=== PATIENT | female | born 1990 | race Asian ===

== ENCOUNTER 2017-01-10 17:52 | Inpatient (IN) | payer BC ==
[~2017-01-10] VITALS: Ht 162.6 cm; Wt 51.8 kg
[2017-01-10 18:43] LABS: PLATELET COUNT 210 x10^3mcL (130-400); RED CELL DISTRIBUTION WIDTH 12.9 % (11.5-14.5)
[2017-01-10 18:49] LABS: BASOPHIL % 0 % (0-2)
[2017-01-10 18:53] LABS: CALCIUM 9.5 mg/dL (8.5-10.1); CARBON DIOXIDE 15.9 mmol/L (21-32); CHLORIDE SERUM 101 mmol/L (98-107); CREATININE SERUM 0.8 mg/dL (0.6-1.0); GFR1 > 60 mL/min; GLUCOSE SERUM 84 mg/dL (74-106); POTASSIUM SERUM 3.3 mmol/L (3.5-5.1); SODIUM SERUM 138 mmol/L (136-145)
[2017-01-10 18:59] LABS: ALBUMIN 4.3 g/dL (3.4-5.0); ALKALINE PHOSPHATASE 31 U/L (46-116); ALT/SGPT 42 U/L (14-59); AMYLASE 68 U/L (25-115); AST/SGOT 25 U/L (15-37); LIPASE 108 IU/L (73-393)
[2017-01-10 19:00] LABS: TOTAL PROTEIN, SERUM 9.4 g/dL (6.4-8.2)
[2017-01-10 21:33] LABS: FREE T4 1.39 ng/dL (0.76-1.46)
[2017-01-10 21:34] LABS: T3 TOTAL 0.85 ng/mL
[2017-01-10 21:35] LABS: T4(THYROXINE) 16.2 ug/dL (4.7-13.3)
[2017-01-10 21:49] VITALS: BP 107/77
[2017-01-10 21:50] LABS: PHOSPHOROUS 4.5 mg/dL (2.5-4.9)
[2017-01-10 21:51] LABS: CHOLESTEROL/HDL RATIO 2.1
[2017-01-11 05:44] VITALS: BP 116/59
[2017-01-11 05:46] LABS: UA SPECIFIC GRAVITY >=1.030 (1.005-1.035); microscopic required? YES; urine erythrocyte NEGATIVE (NEGATIVE)
[2017-01-11 06:13] LABS: BASOPHIL % 0.2 % (0-2); PLATELET COUNT 162 x10^3mcL (130-400); RED CELL DISTRIBUTION WIDTH 13.1 % (11.5-14.5)
[2017-01-11 06:30] LABS: CALCIUM 8.3 mg/dL (8.5-10.1); CARBON DIOXIDE 14.9 mmol/L (21-32); CHLORIDE SERUM 109 mmol/L (98-107); CREATININE SERUM 0.6 mg/dL (0.6-1.0); GFR1 > 60 mL/min; GLUCOSE SERUM 82 mg/dL (74-106); POTASSIUM SERUM 3.2 mmol/L (3.5-5.1); SODIUM SERUM 140 mmol/L (136-145)
[2017-01-11 09:05] VITALS: BP 98/68
[2017-01-11 12:43] VITALS: BP 94/64
[2017-01-11 16:34] VITALS: BP 93/65
[2017-01-11] MEDS ORDERED: PEP20 PO (20:41)
[2017-01-11] MEDS ORDERED: MAC100 PO (20:45)
[2017-01-11] MEDS ORDERED: LAC PO (20:46)
[2017-01-11 21:10] VITALS: BP 96/54
[2017-01-12 04:57] VITALS: BP 102/73
[2017-01-12 05:56] LABS: BASOPHIL % 0.2 % (0-2); PLATELET COUNT 149 x10^3mcL (130-400); RED CELL DISTRIBUTION WIDTH 13.3 % (11.5-14.5)
[2017-01-12 06:17] LABS: CALCIUM 8.3 mg/dL (8.5-10.1); CHLORIDE SERUM 110 mmol/L (98-107); CREATININE SERUM 0.5 mg/dL (0.6-1.0); GFR1 > 60 mL/min; GLUCOSE SERUM 73 mg/dL (74-106); POTASSIUM SERUM 3.6 mmol/L (3.5-5.1); SODIUM SERUM 140 mmol/L (136-145)
[2017-01-12] MEDS ORDERED: ZOF4 PO (07:40)
[2017-01-12 09:32] VITALS: BP 121/57
[2017-01-12 09:35] VITALS: BP 102/66
[2017-01-12] MEDS ORDERED: DICLEGIS1 TCP PO ×2 (11:53→14:59)
[2017-01-12 12:58] VITALS: BP 102/66
[2017-01-12] MEDS ORDERED: COL100 PO (14:03)
[2017-01-12] MEDS ORDERED: MAC100 PO (14:59)
[2017-01-12] MEDS ORDERED: PEP20 PO (14:59)
[2017-01-12] MEDS ORDERED: LAC PO (14:59)
== END 2017-01-12 15:33 | disposition home or self-care (01) | DRG 781 ==
LOC: EDBD 17:52 → ED 17:52 → DU 20:40 → MU 01-12 10:06
PROVIDERS: Emergency Medicine; ADMIT Family Medicine
DX: O21.1 Hyperemesis gravidarum with metabolic disturbance (principal); N17.0 Acute kidney failure with tubular necrosis; O23.41 Unspecified infection of urinary tract in pregnancy, first trimester; O99.281 Endocrine, nutritional and metabolic diseases complicating pregnancy, first trimester; E87.6 Hypokalemia; Z3A.10 10 weeks gestation of pregnancy; O99.011 Anemia complicating pregnancy, first trimester; D64.9 Anemia, unspecified; E05.90 Thyrotoxicosis, unspecified without thyrotoxic crisis or storm
CPT/HCPCS: 84439; J0696; J1200; J2765; J3480; J7030; J7040; J7042; Q0092